=== PATIENT | female | born 1960 | race African-American/Black ===

== ENCOUNTER 2020-01-03 11:49 | Inpatient (IN) | payer OTHER ==
[2020-01-03] MEDS ORDERED: chlordiazePOXIDE HCL 25 MG CAPSULE PO PRN (13:14)
[2020-01-03] MEDS ORDERED: ACETAMINOPHEN 325 MG TABLET (FP) PO PRN ×2 (13:14)
[2020-01-03] MEDS ORDERED: METHOCARBAMOL 500 MG TABLET PO PRN (13:14)
[2020-01-03] MEDS ORDERED: BISMUTH SUBSALICYLATE 262 MG/15 ML BTL PO PRN (13:14)
[2020-01-03] MEDS ORDERED: IBUPROFEN 400 MG TABLET (FP) PO PRN (13:14)
[2020-01-03] MEDS ORDERED: MAGNESIUM CITRATE 300 ML BOTTLE PO PRN (13:14)
[2020-01-03] MEDS ORDERED: ONDANSETRON *ODT* 4 MG TABLET SL ONE (13:14)
[2020-01-03] MEDS ORDERED: MAGNESIUM HYDROX 2400MG/30ML ORAL SUSPENSION 30 ML CUP PO PRN (13:14)
[2020-01-03 14:24] VITALS: BMI 18.6
[2020-01-03] MEDS: hydrOXYzine PAMOATE 25 MG CAPSULE (FP) PO SCH ×3 (15:26→22:30)
[2020-01-03] MEDS: PRENATAL VITAMINS W/ FOLIC ACID TABLET (FP) PO SCH (15:26)
[2020-01-03] MEDS: amLODIPine BESYLATE 10 MG TABLET (FP) PO SCH (15:26)
[2020-01-03 17:14] LABS: MCH 29.9 pg (25.7-33.7); MCHC 32.5 g/dl (32.0-36.0); MEAN CELL VOLUME 91.9 fl (80-96); MEAN PLT VOLUME 11.4 fl (7.5-11.1); PLATELET COUNT 188 K/MM3 (134-434); RBC 4.35 M/mm3 (3.60-5.2); RDW 14.1 % (11.6-15.6); WHITE BLOOD COUNT 8.3 K/mm3 (4.0-10.0)
[2020-01-03 17:28] LABS: ALBUMIN 4.6 g/dl (3.4-5.0); BILIRUBIN,TOTAL 0.6 mg/dL (0.2-1); BLOOD UREA NITROGEN 16.3 mg/dL (7-18); CALCIUM 9.4 mg/dL (8.5-10.1); CREATININE 0.9 mg/dL (0.55-1.3); POTASSIUM 4.2 mmol/L (3.5-5.1); TOT PROT 8.6 g/dl (6.4-8.2)
[2020-01-03] MEDS: chlordiazePOXIDE HCL 25 MG CAPSULE PO SCH ×2 (17:38→22:40)
[2020-01-03 18:18] LABS: HIV INTERPRETATION NEGATIVE (NEGATIVE)
[2020-01-03] MEDS: MENTHOL/PHENOL 1 EACH UD MM PRN (20:31)
[2020-01-03] MEDS: THIAMINE HCL 100 MG TABLET (FP) PO SCH (22:30)
[2020-01-03] MEDS: ATORVASTATIN CA 10 MG TABLET (FP) PO SCH (22:30)
[2020-01-03] MEDS: traZODone HCL 50 MG TABLET (FP) PO SCH (22:30)
[2020-01-03] MEDS: MELATONIN 5 MG TABLETS PO SCH (22:30)
[2020-01-04] MEDS: hydrOXYzine PAMOATE 25 MG CAPSULE (FP) PO SCH ×5 (07:09→22:07)
[2020-01-04] MEDS: chlordiazePOXIDE HCL 25 MG CAPSULE PO SCH ×4 (07:09→22:07)
[2020-01-04] MEDS: amLODIPine BESYLATE 10 MG TABLET (FP) PO SCH (10:40)
[2020-01-04] MEDS: PRENATAL VITAMINS W/ FOLIC ACID TABLET (FP) PO SCH (10:40)
[2020-01-04] MEDS: MENTHOL/PHENOL 1 EACH UD MM PRN (11:41)
[2020-01-04] MEDS: ATORVASTATIN CA 10 MG TABLET (FP) PO SCH (22:06)
[2020-01-04] MEDS: MELATONIN 5 MG TABLETS PO SCH (22:07)
[2020-01-04] MEDS: THIAMINE HCL 100 MG TABLET (FP) PO SCH (22:07)
[2020-01-04] MEDS: traZODone HCL 50 MG TABLET (FP) PO SCH (22:07)
[2020-01-05] MEDS: chlordiazePOXIDE HCL 25 MG CAPSULE PO SCH ×4 (06:19→22:25)
[2020-01-05] MEDS: hydrOXYzine PAMOATE 25 MG CAPSULE (FP) PO SCH ×2 (06:19→10:25)
[2020-01-05] MEDS: MENTHOL/PHENOL 1 EACH UD MM PRN ×2 (06:21→10:28)
[2020-01-05] MEDS: PRENATAL VITAMINS W/ FOLIC ACID TABLET (FP) PO SCH (10:25)
[2020-01-05] MEDS: amLODIPine BESYLATE 10 MG TABLET (FP) PO SCH (10:26)
[2020-01-05 10:28] LABS: EPI CELLS 23 /uL (0-25.1); HYALINE CASTS 1 /uL (0-3.1); URINE APPEARANCE CLEAR; URINE BACTERIA 153 /uL (0-1359); URINE BILIRUBIN NEGATIVE (NEGATIVE); URINE COLOR YELLOW; URINE GLUCOSE (UA) NEGATIVE (NEGATIVE); URINE KETONE NEGATIVE (NEGATIVE); URINE LEUK ESTERASE 2+ (NEGATIVE); URINE NITRITE NEGATIVE (NEGATIVE); URINE PROTEIN NEGATIVE (NEGATIVE); URINE RBC 2 /uL (0-23.9); URINE UROBILINOGEN 0.2 mg/dL (0.2-1.0); URINE WBC 43 /uL (0-25.8)
[2020-01-05] MEDS: SULFAMETHOXAZOLE/TRIMETHOPRIM 800MG/160MG D.S. TABLET PO SCH ×2 (14:29→22:25)
[2020-01-05] MEDS ORDERED: hydrOXYzine PAMOATE 50 MG CAPSULE (FP) PO PRN (17:00)
[2020-01-05] MEDS: MAG HYDROX/AL HYDROX/SIMETH 30 ML UNIT-DOSE CUP PO PRN (17:41)
[2020-01-05] MEDS: MELATONIN 5 MG TABLETS PO SCH (22:24)
[2020-01-05] MEDS: THIAMINE HCL 100 MG TABLET (FP) PO SCH (22:24)
[2020-01-05] MEDS: traZODone HCL 50 MG TABLET (FP) PO SCH (22:25)
[2020-01-05] MEDS: ATORVASTATIN CA 10 MG TABLET (FP) PO SCH (22:25)
[2020-01-06] MEDS ORDERED: chlordiazePOXIDE HCL 10 MG CAPSULE PO PRN
[2020-01-06] MEDS: chlordiazePOXIDE HCL 10 MG CAPSULE PO SCH ×4 (05:53→22:15)
[2020-01-06] MEDS: SULFAMETHOXAZOLE/TRIMETHOPRIM 800MG/160MG D.S. TABLET PO SCH ×2 (10:16→22:15)
[2020-01-06] MEDS: PRENATAL VITAMINS W/ FOLIC ACID TABLET (FP) PO SCH (10:16)
[2020-01-06] MEDS: amLODIPine BESYLATE 10 MG TABLET (FP) PO SCH (10:17)
[2020-01-06] MEDS: MAG HYDROX/AL HYDROX/SIMETH 30 ML UNIT-DOSE CUP PO PRN (13:04)
[2020-01-06] MEDS: CHLORHEXIDINE GLUCONATE 0.12% 15ML CUP MM SCH ×4 (13:39→22:16)
[2020-01-06] MEDS: ATORVASTATIN CA 10 MG TABLET (FP) PO SCH (22:15)
[2020-01-06] MEDS: MELATONIN 5 MG TABLETS PO SCH (22:15)
[2020-01-06] MEDS: THIAMINE HCL 100 MG TABLET (FP) PO SCH (22:15)
[2020-01-06] MEDS: traZODone HCL 50 MG TABLET (FP) PO SCH (22:15)
[2020-01-07] MEDS ORDERED: chlordiazePOXIDE HCL 10 MG CAPSULE PO SCH (05:00)
[2020-01-07] MEDS: MENTHOL/PHENOL 1 EACH UD MM PRN (06:16)
[2020-01-07] MEDS: MAG HYDROX/AL HYDROX/SIMETH 30 ML UNIT-DOSE CUP PO PRN ×2 (06:16→11:30)
[2020-01-07] MEDS: amLODIPine BESYLATE 10 MG TABLET (FP) PO SCH (10:27)
[2020-01-07] MEDS: PRENATAL VITAMINS W/ FOLIC ACID TABLET (FP) PO SCH (10:27)
[2020-01-07] MEDS: SULFAMETHOXAZOLE/TRIMETHOPRIM 800MG/160MG D.S. TABLET PO SCH (10:27)
[2020-01-07] MEDS: CHLORHEXIDINE GLUCONATE 0.12% 15ML CUP MM SCH (10:28)
[2020-01-07 12:59] VITALS: BP 104/73; PULSE 92; TEMP 97.1
[2020-01-08] MEDS ORDERED: chlordiazePOXIDE HCL 10 MG CAPSULE PO ONE (05:00)
== END 2020-01-07 13:00 | disposition other institution (70) | DRG 774 ==
LOC: YASAS 11:49 → Y5N DETOX 13:58 → Y6N 15:19 → Y5N DETOX 15:20 → Y3N 01-04 13:25
PROVIDERS: ADMIT Allergy & Immunology; ATTEND Allergy & Immunology
PROC: HZ2ZZZZ Detoxification Services for Substance Abuse Treatment (ICD-10-PCS; principal; 2020-01-03)
DX: F10.230 Alcohol dependence with withdrawal, uncomplicated (principal); F14.20 Cocaine dependence, uncomplicated; F16.20 Hallucinogen dependence, uncomplicated; F19.282 Other psychoactive substance dependence with psychoactive substance-induced sleep disorder; F32.9 Major depressive disorder, single episode, unspecified; I10 Essential (primary) hypertension; J45.20 Mild intermittent asthma, uncomplicated; E78.5 Hyperlipidemia, unspecified; N39.0 Urinary tract infection, site not specified; R07.0 Pain in throat; Z87.891 Personal history of nicotine dependence; Z86.19 Personal history of other infectious and parasitic diseases; Z62.810 Personal history of physical and sexual abuse in childhood; Z91.410 Personal history of adult physical and sexual abuse
CPT/HCPCS: 36415; 71046-TC-FY; 80053; 81003; 85027; 86593; 86780; 87389; 93005; 93010; Q0162; U0003

== ENCOUNTER 2020-01-07 13:09 | Inpatient (IN) | payer OTHER ==
--- NOTE | 2020-01-07 15:00 | HP ---
[facility] Rehab Assess/Revision - Admission History Admitted to Rehab from: [facility] Date of Admission to Rehab: 01/07/2020 - Vital signs Vital Signs: Vital Signs Period Temp Pulse Resp BP Sys/Nesbtit Pulse Ox Last 24 Hr 98.6 F 97 18 114/103 - Findings Detox History & Physical reviewed: Yes Concur with findings: Yes Inpatient Rehab Admission - Rehab Decision to Admit Inpatient rehab admission?: Yes - Initial Determination Are CD services needed?: Yes Free of communicable disease: Yes Not in need of hospitalization: No - Rehab Admission Criteria Previous failed treatment: Yes Poor recovery environment: Yes Comorbidities: Yes Lacks judgement: No Patient is meeting Inpatient Rehab admission criteria:: Yes
[2020-01-07] MEDS ORDERED: LOPERAMIDE HCL 2 MG CAPSULE PO PRN (15:01)
[2020-01-07] MEDS ORDERED: MAGNESIUM HYDROX 2400MG/30ML ORAL SUSPENSION 30 ML CUP PO PRN (15:01)
[2020-01-07] MEDS ORDERED: MAGNESIUM CITRATE 300 ML BOTTLE PO PRN (15:01)
[2020-01-07] MEDS ORDERED: P-EPHED 60MG/TRIPROLIDI 2.5MG TABLET PO PRN (15:01)
[2020-01-07] MEDS ORDERED: NICOTINE POLACRILEX 2 MG GUM BUC PRN (15:01)
[2020-01-07] MEDS ORDERED: MENTHOL/PHENOL 1 EACH UD MM PRN (15:01)
[2020-01-07] MEDS ORDERED: ACETAMINOPHEN 325 MG TABLET (FP) PO PRN (15:01)
[2020-01-07] MEDS ORDERED: guaiFENesin 200 MG/10 ML 10 ML UNIT-DOSE CUPS PO PRN (15:01)
[2020-01-07] MEDS: MAG HYDROX/AL HYDROX/SIMETH 30 ML UNIT-DOSE CUP PO PRN (16:50)
[2020-01-07] MEDS: THIAMINE HCL 100 MG TABLET (FP) PO SCH (21:41)
[2020-01-07] MEDS: MELATONIN 5 MG TABLETS PO SCH (21:41)
[2020-01-07] MEDS: ATORVASTATIN CA 10 MG TABLET (FP) PO SCH (21:43)
[2020-01-07] MEDS: SULFAMETHOXAZOLE/TRIMETHOPRIM 800MG/160MG D.S. TABLET PO SCH (21:43)
[2020-01-07] MEDS ORDERED: PT OWN MED DRAWER 7, Y5N ONE (21:43)
[2020-01-07] MEDS: CHLORHEXIDINE GLUCONATE 0.12% 15ML CUP MM SCH (22:38)
[2020-01-08] MEDS: CHLORHEXIDINE GLUCONATE 0.12% 15ML CUP MM SCH ×2 (09:59→21:49)
[2020-01-08] MEDS: amLODIPine BESYLATE 10 MG TABLET (FP) PO SCH (09:59)
[2020-01-08] MEDS: SULFAMETHOXAZOLE/TRIMETHOPRIM 800MG/160MG D.S. TABLET PO SCH ×2 (09:59→21:49)
[2020-01-08] MEDS: PRENATAL VITAMINS W/ FOLIC ACID TABLET (FP) PO SCH (09:59)
[2020-01-08] MEDS: NICOTINE 7 MG/24 HOURS TOPICAL PATCH TD SCH (09:59)
[2020-01-08] MEDS: MAG HYDROX/AL HYDROX/SIMETH 30 ML UNIT-DOSE CUP PO PRN (18:41)
[2020-01-08] MEDS: THIAMINE HCL 100 MG TABLET (FP) PO SCH (21:49)
[2020-01-08] MEDS: ATORVASTATIN CA 10 MG TABLET (FP) PO SCH (21:49)
[2020-01-08] MEDS: MELATONIN 5 MG TABLETS PO SCH (21:49)
[2020-01-08] MEDS ORDERED: METHYL SALICYLATE/MENTHOL OINT 30 GM TUBE TP SCH (22:00)
[2020-01-08] MEDS: IBUPROFEN 400 MG TABLET (FP) PO PRN (22:40)
[2020-01-09] MEDS: PRENATAL VITAMINS W/ FOLIC ACID TABLET (FP) PO SCH (09:48)
[2020-01-09] MEDS: amLODIPine BESYLATE 10 MG TABLET (FP) PO SCH (09:49)
[2020-01-09] MEDS: SULFAMETHOXAZOLE/TRIMETHOPRIM 800MG/160MG D.S. TABLET PO SCH ×2 (09:49→21:27)
[2020-01-09] MEDS: NICOTINE 7 MG/24 HOURS TOPICAL PATCH TD SCH (09:49)
[2020-01-09] MEDS: CHLORHEXIDINE GLUCONATE 0.12% 15ML CUP MM SCH ×2 (09:50→21:27)
[2020-01-09] MEDS: ATORVASTATIN CA 10 MG TABLET (FP) PO SCH (21:27)
[2020-01-09] MEDS: THIAMINE HCL 100 MG TABLET (FP) PO SCH (21:27)
[2020-01-09] MEDS: MELATONIN 5 MG TABLETS PO SCH (21:27)
[2020-01-10] MEDS: CHLORHEXIDINE GLUCONATE 0.12% 15ML CUP MM SCH (10:50)
[2020-01-10] MEDS: PRENATAL VITAMINS W/ FOLIC ACID TABLET (FP) PO SCH (10:50)
[2020-01-10] MEDS: amLODIPine BESYLATE 10 MG TABLET (FP) PO SCH (10:50)
[2020-01-10] MEDS: SULFAMETHOXAZOLE/TRIMETHOPRIM 800MG/160MG D.S. TABLET PO SCH (12:04)
[2020-01-10] MEDS: NICOTINE 7 MG/24 HOURS TOPICAL PATCH TD SCH (12:07)
[2020-01-10] MEDS: IBUPROFEN 400 MG TABLET (FP) PO PRN (14:41)
[2020-01-10] MEDS: ALBUTEROL SO4 HFA INHALER IH PRN ×2 (17:51→22:07)
--- NOTE | 2020-01-10 18:23 | PN ---
[facility] Progress Note Note: Called to see patient who was c/o SOB. Patient given albuterol MDI . Patient states may have been anxiety. c/o insomnia. States has taken Trazodone in the past. Vital Signs - 24 hr 01/10/20 01/10/20 01/10/20 07:17 08:38 16:50 Temperature 98.2 F 97.5 F L Pulse Rate 93 H 98 H Respiratory 18 18 Rate Blood Pressure 106/76 110/77 O2 Sat by Pulse 98 95 Oximetry (%) Assess: Post albuterol Pulse Ox = 98% Lungs CTA HR: 96 Plan: Albuterol MDI, prn Flovent BID Once dose Trazodone Psych consult
[2020-01-10] MEDS ORDERED: PT OWN MED DRAWER 7, Y5N ONE (20:40)
[2020-01-10] MEDS ORDERED: traZODone HCL 50 MG TABLET (FP) PO ONE (21:00)
[2020-01-10] MEDS: ATORVASTATIN CA 10 MG TABLET (FP) PO SCH (22:08)
[2020-01-10] MEDS: MOMETASONE FUROATE 220 MCG/IH INHALER IH SCH (22:08)
[2020-01-10] MEDS: MELATONIN 5 MG TABLETS PO SCH (22:09)
[2020-01-10] MEDS: THIAMINE HCL 100 MG TABLET (FP) PO SCH (22:09)
[2020-01-11] MEDS: CHLORHEXIDINE GLUCONATE 0.12% 15ML CUP MM SCH ×3 (00:28→21:18)
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
[2020-01-11] MEDS: PRENATAL VITAMINS W/ FOLIC ACID TABLET (FP) PO SCH (10:35)
[2020-01-11] MEDS: IBUPROFEN 400 MG TABLET (FP) PO PRN (10:36)
[2020-01-11] MEDS: NICOTINE 7 MG/24 HOURS TOPICAL PATCH TD SCH (10:36)
[2020-01-11] MEDS: amLODIPine BESYLATE 10 MG TABLET (FP) PO SCH (10:36)
[2020-01-11] MEDS ORDERED: PT OWN MED DRAWER 7, Y5N ONE (10:38)
[2020-01-11] MEDS: ATORVASTATIN CA 10 MG TABLET (FP) PO SCH (21:18)
[2020-01-11] MEDS: MELATONIN 5 MG TABLETS PO SCH (21:18)
[2020-01-11] MEDS: THIAMINE HCL 100 MG TABLET (FP) PO SCH (21:18)
[2020-01-11] MEDS: traZODone HCL 100 MG TABLET (FP) PO SCH (21:19)
[2020-01-11] MEDS: MOMETASONE FUROATE 220 MCG/IH INHALER IH SCH (21:20)
[2020-01-12] MEDS: amLODIPine BESYLATE 10 MG TABLET (FP) PO SCH (10:34)
[2020-01-12] MEDS: PRENATAL VITAMINS W/ FOLIC ACID TABLET (FP) PO SCH (10:34)
[2020-01-12] MEDS: NICOTINE 7 MG/24 HOURS TOPICAL PATCH TD SCH (10:34)
[2020-01-12] MEDS: CHLORHEXIDINE GLUCONATE 0.12% 15ML CUP MM SCH ×2 (10:35→21:52)
[2020-01-12] MEDS ORDERED: PT OWN MED DRAWER 7, Y5N ONE (19:12)
[2020-01-12] MEDS: MELATONIN 5 MG TABLETS PO SCH (21:51)
[2020-01-12] MEDS: traZODone HCL 100 MG TABLET (FP) PO SCH (21:51)
[2020-01-12] MEDS: ATORVASTATIN CA 10 MG TABLET (FP) PO SCH (21:51)
[2020-01-12] MEDS: THIAMINE HCL 100 MG TABLET (FP) PO SCH (21:51)
[2020-01-12] MEDS: MOMETASONE FUROATE 220 MCG/IH INHALER IH SCH (21:52)
[2020-01-13] MEDS ORDERED: PT OWN MED DRAWER 7, Y5N ONE (09:02)
[2020-01-13] MEDS: PRENATAL VITAMINS W/ FOLIC ACID TABLET (FP) PO SCH (10:40)
[2020-01-13] MEDS: amLODIPine BESYLATE 10 MG TABLET (FP) PO SCH (10:40)
[2020-01-13] MEDS: NICOTINE 7 MG/24 HOURS TOPICAL PATCH TD SCH (10:40)
[2020-01-13] MEDS: CHLORHEXIDINE GLUCONATE 118 ML MOUTHWASH MM SCH ×2 (10:41→21:23)
[2020-01-13] MEDS: ALBUTEROL SO4 HFA INHALER IH PRN (10:41)
[2020-01-13] MEDS: MELATONIN 5 MG TABLETS PO SCH (21:20)
[2020-01-13] MEDS: THIAMINE HCL 100 MG TABLET (FP) PO SCH (21:20)
[2020-01-13] MEDS: ATORVASTATIN CA 10 MG TABLET (FP) PO SCH (21:21)
[2020-01-13] MEDS: traZODone HCL 100 MG TABLET (FP) PO SCH (21:21)
[2020-01-13] MEDS: MOMETASONE FUROATE 220 MCG/IH INHALER IH SCH (21:23)
[2020-01-14] MEDS: NICOTINE 7 MG/24 HOURS TOPICAL PATCH TD SCH (10:44)
[2020-01-14] MEDS: PRENATAL VITAMINS W/ FOLIC ACID TABLET (FP) PO SCH (10:44)
[2020-01-14] MEDS: amLODIPine BESYLATE 10 MG TABLET (FP) PO SCH (10:44)
[2020-01-14] MEDS ORDERED: PT OWN MED DRAWER 7, Y5N ONE (10:48)
[2020-01-14] MEDS: CHLORHEXIDINE GLUCONATE 118 ML MOUTHWASH MM SCH ×2 (12:25→21:29)
[2020-01-14] MEDS: MELATONIN 5 MG TABLETS PO SCH (21:28)
[2020-01-14] MEDS: THIAMINE HCL 100 MG TABLET (FP) PO SCH (21:28)
[2020-01-14] MEDS: traZODone HCL 100 MG TABLET (FP) PO SCH (21:28)
[2020-01-14] MEDS: ATORVASTATIN CA 10 MG TABLET (FP) PO SCH (21:28)
[2020-01-14] MEDS: MOMETASONE FUROATE 220 MCG/IH INHALER IH SCH (21:29)
[2020-01-15] MEDS ORDERED: PT OWN MED DRAWER 7, Y5N ONE (08:52)
[2020-01-15] MEDS: CHLORHEXIDINE GLUCONATE 118 ML MOUTHWASH MM SCH ×2 (10:46→22:00)
[2020-01-15] MEDS: amLODIPine BESYLATE 10 MG TABLET (FP) PO SCH (10:46)
[2020-01-15] MEDS: PRENATAL VITAMINS W/ FOLIC ACID TABLET (FP) PO SCH (10:46)
[2020-01-15] MEDS: NICOTINE 7 MG/24 HOURS TOPICAL PATCH TD SCH (10:46)
[2020-01-15] MEDS: MELATONIN 5 MG TABLETS PO SCH (22:00)
[2020-01-15] MEDS: THIAMINE HCL 100 MG TABLET (FP) PO SCH (22:00)
[2020-01-15] MEDS: traZODone HCL 100 MG TABLET (FP) PO SCH (22:00)
[2020-01-15] MEDS: ATORVASTATIN CA 10 MG TABLET (FP) PO SCH (22:00)
[2020-01-15] MEDS: MOMETASONE FUROATE 220 MCG/IH INHALER IH SCH (22:00)
[2020-01-16] MEDS: NICOTINE 7 MG/24 HOURS TOPICAL PATCH TD SCH (10:21)
[2020-01-16] MEDS: CHLORHEXIDINE GLUCONATE 118 ML MOUTHWASH MM SCH ×2 (10:21→21:46)
[2020-01-16] MEDS: PRENATAL VITAMINS W/ FOLIC ACID TABLET (FP) PO SCH (10:21)
[2020-01-16] MEDS: amLODIPine BESYLATE 10 MG TABLET (FP) PO SCH (10:21)
[2020-01-16] MEDS: IBUPROFEN 400 MG TABLET (FP) PO PRN (18:22)
[2020-01-16] MEDS ORDERED: PT OWN MED DRAWER 7, Y5N ONE (21:02)
[2020-01-16] MEDS: MOMETASONE FUROATE 220 MCG/IH INHALER IH SCH (21:44)
[2020-01-16] MEDS: THIAMINE HCL 100 MG TABLET (FP) PO SCH (21:45)
[2020-01-16] MEDS: traZODone HCL 100 MG TABLET (FP) PO SCH (21:46)
[2020-01-16] MEDS: ATORVASTATIN CA 10 MG TABLET (FP) PO SCH (21:46)
[2020-01-16] MEDS: ALBUTEROL SO4 HFA INHALER IH PRN (21:48)
[2020-01-16] MEDS: MELATONIN 5 MG TABLETS PO SCH (23:07)
[2020-01-17] MEDS: IBUPROFEN 400 MG TABLET (FP) PO PRN (09:09)
[2020-01-17] MEDS: amLODIPine BESYLATE 10 MG TABLET (FP) PO SCH (09:09)
[2020-01-17] MEDS: PRENATAL VITAMINS W/ FOLIC ACID TABLET (FP) PO SCH (09:09)
[2020-01-17] MEDS: CHLORHEXIDINE GLUCONATE 118 ML MOUTHWASH MM SCH ×2 (09:09→21:32)
[2020-01-17] MEDS: NICOTINE 7 MG/24 HOURS TOPICAL PATCH TD SCH (09:10)
[2020-01-17] MEDS: ALBUTEROL SO4 HFA INHALER IH PRN (09:11)
[2020-01-17] MEDS ORDERED: HYDROCORTISONE 1% TOPICAL CREAM 30 GM TUBE TP PRN (11:20)
[2020-01-17] MEDS ORDERED: COLLOIDAL OATMEAL 1 BAR EACH TP PRN (11:20)
--- NOTE | 2020-01-17 11:22 | PN ---
[facility] Progress Note Note: PATIENT C/O DRY SKIN AND ITCHING. Vital Signs Temperature 97.6 F 01/17/20 08:43 Pulse Rate 84 01/17/20 08:43 Respiratory Rate 18 01/17/20 08:43 Blood Pressure 118/79 01/17/20 08:43 O2 Sat by Pulse Oximetry (%) 98 01/17/20 06:45 PE ALERT AND ORIENTED X 3 SKIN WARM, INTACT, +DRYNESS EXT FULL ROM, AMB AD CLAIRE A/P: DRY SKIN AVEENO SOAP HYDROCORTISONE 1% CR BID PRN MONITOR CLINICALLY
--- NOTE | 2020-01-17 18:08 | DS ---
[facility] Rehab Discharge Summary - [facility] Rehab Discharge Summary Admission Date: 01/07/20 Discharge Date: 01/17/20 - Discharge Physical Exam Vital Signs: Vital Signs Temperature 97.6 F 01/17/20 08:43 Pulse Rate 84 01/17/20 08:43 Respiratory Rate 18 01/17/20 08:43 Blood Pressure 118/79 01/17/20 08:43 O2 Sat by Pulse Oximetry (%) 96 01/17/20 15:31 - Medication Discharge Medications: Ambulatory Orders Amlodipine Besylate [Norvasc -] 10 mg PO DAILY 01/03/20 Calcium Carbonate [Oyster Shell Calcium] 500 mg PO BID 01/03/20 Fluticasone Propionate [Flovent Hfa] 44 mcg IH BID 01/03/20 Multivit-Minerals/Folic Acid [One Daily Womens 50 Plus Tab] 0.4 mg PO DAILY 01/03/20 Simvastatin [Zocor] 10 mg PO HS 01/03/20 - Discharge Instructions Diet, activity, other medical instructions: Diet: Activity: Other medical instructions:
--- NOTE | 2020-01-17 18:09 | PN ---
[facility] Progress Note Note: States does not feel comfortable here. 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
[2020-01-17] MEDS: traZODone HCL 100 MG TABLET (FP) PO SCH (21:31)
[2020-01-17] MEDS: THIAMINE HCL 100 MG TABLET (FP) PO SCH (21:31)
[2020-01-17] MEDS: MELATONIN 5 MG TABLETS PO SCH (21:31)
[2020-01-17] MEDS: ATORVASTATIN CA 10 MG TABLET (FP) PO SCH (21:31)
[2020-01-17] MEDS: MOMETASONE FUROATE 220 MCG/IH INHALER IH SCH (21:32)
[2020-01-18] MEDS: amLODIPine BESYLATE 10 MG TABLET (FP) PO SCH (10:21)
[2020-01-18] MEDS: PRENATAL VITAMINS W/ FOLIC ACID TABLET (FP) PO SCH (10:21)
[2020-01-18] MEDS: NICOTINE 7 MG/24 HOURS TOPICAL PATCH TD SCH (10:21)
[2020-01-18] MEDS: ALBUTEROL SO4 HFA INHALER IH PRN (10:21)
[2020-01-18] MEDS: CHLORHEXIDINE GLUCONATE 118 ML MOUTHWASH MM SCH ×2 (10:23→21:15)
[2020-01-18] MEDS: ATORVASTATIN CA 10 MG TABLET (FP) PO SCH (21:15)
[2020-01-18] MEDS: THIAMINE HCL 100 MG TABLET (FP) PO SCH (21:15)
[2020-01-18] MEDS: traZODone HCL 100 MG TABLET (FP) PO SCH (21:15)
[2020-01-18] MEDS: MELATONIN 5 MG TABLETS PO SCH (21:16)
[2020-01-18] MEDS: MOMETASONE FUROATE 220 MCG/IH INHALER IH SCH (21:16)
[2020-01-19] MEDS: amLODIPine BESYLATE 10 MG TABLET (FP) PO SCH (10:11)
[2020-01-19] MEDS: PRENATAL VITAMINS W/ FOLIC ACID TABLET (FP) PO SCH (10:11)
[2020-01-19] MEDS: NICOTINE 7 MG/24 HOURS TOPICAL PATCH TD SCH (10:12)
[2020-01-19] MEDS: CHLORHEXIDINE GLUCONATE 118 ML MOUTHWASH MM SCH ×2 (10:12→21:16)
[2020-01-19] MEDS: IBUPROFEN 400 MG TABLET (FP) PO PRN (10:12)
[2020-01-19] MEDS: ALBUTEROL SO4 HFA INHALER IH PRN (10:13)
[2020-01-19] MEDS ORDERED: PT OWN MED DRAWER 7, Y5N ONE (18:53)
[2020-01-19] MEDS: MELATONIN 5 MG TABLETS PO SCH (21:16)
[2020-01-19] MEDS: THIAMINE HCL 100 MG TABLET (FP) PO SCH (21:16)
[2020-01-19] MEDS: MOMETASONE FUROATE 220 MCG/IH INHALER IH SCH (21:16)
[2020-01-19] MEDS: traZODone HCL 100 MG TABLET (FP) PO SCH (21:16)
[2020-01-19] MEDS: ATORVASTATIN CA 10 MG TABLET (FP) PO SCH (21:16)
[2020-01-20] MEDS: CHLORHEXIDINE GLUCONATE 118 ML MOUTHWASH MM SCH ×2 (10:16→21:50)
[2020-01-20] MEDS: PRENATAL VITAMINS W/ FOLIC ACID TABLET (FP) PO SCH (10:29)
[2020-01-20] MEDS: amLODIPine BESYLATE 10 MG TABLET (FP) PO SCH (10:29)
[2020-01-20] MEDS: ALBUTEROL SO4 HFA INHALER IH PRN (10:29)
[2020-01-20] MEDS: NICOTINE 7 MG/24 HOURS TOPICAL PATCH TD SCH (10:29)
--- NOTE | 2020-01-20 11:21 | PN ---
[facility] Progress Note Note: patient to be discharged tomorrow. HPI: Ms. Neal is a 59 yo woman who presents to [facility] stating "I'm so tired and desperate, I'm tired of getting high", admitted for detox, which she completed, then transferred to rehab, now completed. Reported hx of alcohol, crack and PCP use. She was last here in November and states she was not admitted as there was no available bed. Hospital course during rehab: patient attended groups, had 1:1 with her counselor and was seen by the psychiatric service. She was adherent to her medication regimen and treatment plan She had no acute or urgent medical problems while in rehab. PMHx; PMH: HTN, asthma, HLD, asthma/no tx PSH: 2 left thumb tendons, left ankle fracture: screws and rods, myomectomy for fibroids Psych: depression, anxiety, no follow up in 2 years SOC: lives in her own apartment in [facility] Physical General Appearance: no apparent distress HEENTM: Normocephalic, Respiratory: respirations unlabored, No Accessory Muscle Use Neck: Supple, Cardiology: S1, S2 Abdominal: +Bowel Sounds Musculoskeletal: Full ROM, Gait Steady Neurological: Cn 2-12 intact Vital Signs Period Temp Pulse Resp BP Sys/Nesbitt Pulse Ox Last 24 Hr 98.2 F-98.4 F 87-90 18-19 106-110/70-88 95-97 Assessment: Polysubstance use Discharge plan: Patient will receive aftercare at [facility] and continue psychiatric treatment at [facility] Medications sent to her pharmacy.
--- NOTE | 2020-01-20 14:40 | PN ---
[facility] Progress Note Note: Patient is scheduled for discharge tomorrow. Script for 30 days supply of [id number] mg/hs will be electronically transmitted to [facility], [address], [place] [address]
[2020-01-20] MEDS: MOMETASONE FUROATE 220 MCG/IH INHALER IH SCH (21:50)
[2020-01-20] MEDS: ATORVASTATIN CA 10 MG TABLET (FP) PO SCH (21:51)
[2020-01-20] MEDS: THIAMINE HCL 100 MG TABLET (FP) PO SCH (21:52)
[2020-01-20] MEDS: traZODone HCL 100 MG TABLET (FP) PO SCH (21:52)
[2020-01-20] MEDS: MELATONIN 5 MG TABLETS PO SCH (21:53)
[2020-01-21] MEDS ORDERED: MASKS NR ONE (09:07)
[2020-01-21 09:15] VITALS: BP 125/81; PULSE 83; TEMP 98.2
[2020-01-21] MEDS: PRENATAL VITAMINS W/ FOLIC ACID TABLET (FP) PO SCH (09:28)
[2020-01-21] MEDS: amLODIPine BESYLATE 10 MG TABLET (FP) PO SCH (09:28)
[2020-01-21] MEDS: NICOTINE 7 MG/24 HOURS TOPICAL PATCH TD SCH (09:28)
[2020-01-21] MEDS: CHLORHEXIDINE GLUCONATE 118 ML MOUTHWASH MM SCH (09:29)
--- NOTE | 2020-01-21 09:44 | DS ---
[facility] Rehab Discharge Summary - [facility] Rehab Discharge Summary Admission Date: 01/07/20 Discharge Date: 01/21/20 - History Present History: Alcohol dependence, Cocaine dependence - Discharge Physical Exam Vital Signs: Vital Signs Temperature 98.2 F 01/21/20 08:36 Pulse Rate 83 01/21/20 08:36 Respiratory Rate 18 01/21/20 08:36 Blood Pressure 125/81 01/21/20 08:36 O2 Sat by Pulse Oximetry (%) 98 01/21/20 06:58 ROS: DENIES CHEST PAIN, SOB, FEVER, COUGH, SWEATS, ALCOHOL/HILTON CRAVINGS AND SHAKES PE: ALERT AND ORIENTED X 3 SKIN WARM AND DRY CAR S1S2 RESP CTA BL EXT FULL ROM, AMB AD CLAIRE NO TREMORS A/P: ALCOHOL DEPENDENCE COCAINE DEPENDENCE HTN ASTHMA PATIENT MEDICALLY STABLE FOR DISCHARGE AFTERCARE AR[facility]ANGED FOR [facility] - Treatment Discharge Condition: Discharge condition good - Medication Discharge Medications: Ambulatory Orders Fluticasone Propionate [Flovent Hfa] 44 mcg IH BID 01/03/20 Amlodipine Besylate [Norvasc -] 10 mg PO DAILY #30 tablet 01/20/20 Calcium Carbonate [Oyster Shell Calcium] 500 mg PO BID #30 tablet 01/20/20 Multivit-Minerals/Folic Acid [One Daily Womens 50 Plus Tab] 0.4 mg PO DAILY #30 tablet 01/20/20 Simvastatin [Zocor -] 10 mg PO HS #30 tablet 01/20/20 traZODone HCL [Desyrel -] 100 mg PO HS #30 tablet 01/20/20 - Medication-Assisted Treatment (MAT) Medication-Assisted Treatment (MAT): No MAT Follow-up Referral: FLORIAN GARCIA, APPT 01/25/2020 11AM. - Discharge Instructions Diet, activity, other medical instructions: Diet: DAMIAN TOLERATED Activity: TOLERATED Other medical instructions: F/U WITH PCP RECOMMENDED - Follow-up Referral Minutes to complete discharge: 35 - AMA Did Patient Leave Against Medical Advice: Yes
== END 2020-01-21 09:41 | disposition home or self-care (01) | DRG 772 ==
LOC: YASAS 13:09 → Y3W 13:11
PROVIDERS: ADMIT Allergy & Immunology; ATTEND Allergy & Immunology
PROC: HZ42ZZZ Group Counseling for Substance Abuse Treatment, Cognitive-Behavioral (ICD-10-PCS; principal; 2020-01-07)
DX: F10.20 Alcohol dependence, uncomplicated (principal); F14.20 Cocaine dependence, uncomplicated; F16.20 Hallucinogen dependence, uncomplicated; F17.210 Nicotine dependence, cigarettes, uncomplicated; F19.282 Other psychoactive substance dependence with psychoactive substance-induced sleep disorder; F41.8 Other specified anxiety disorders; F32.9 Major depressive disorder, single episode, unspecified; I10 Essential (primary) hypertension; E78.5 Hyperlipidemia, unspecified; J45.909 Unspecified asthma, uncomplicated; L85.3 Xerosis cutis; Z62.810 Personal history of physical and sexual abuse in childhood; Z91.410 Personal history of adult physical and sexual abuse; Z86.2 Personal history of diseases of the blood and blood-forming organs and certain disorders involving the immune mechanism; Z56.0 Unemployment, unspecified

== ENCOUNTER 2023-12-23 12:20 | Inpatient (IN) | payer OTHER ==
[2023-12-23 12:49] VITALS: BMI 17.7
[2023-12-23] MEDS ORDERED: guaiFENesin 600 MG TABLET.ER (FP) PO PRN (13:25)
[2023-12-23] MEDS ORDERED: NALOXONE (NARCAN) HCL 4 MG/0.1 ML SPRAY NS PRN (13:25)
[2023-12-23] MEDS ORDERED: ACETAMINOPHEN 325 MG TABLET (FP) PO PRN (13:25)
[2023-12-23] MEDS ORDERED: DICYCLOMINE HCL 10 MG CAPSULE PO PRN (13:25)
[2023-12-23] MEDS ORDERED: BENZONATATE 200 MG CAPSULE PO PRN (13:25)
[2023-12-23] MEDS ORDERED: POLYETHYLENE GLYCOL (HEALTHYLAX) 3350 17 GM PACKET PO PRN (13:25)
[2023-12-23] MEDS ORDERED: BISMUTH SUBSALICYLATE 524 MG/30 ML PO PRN (13:25)
[2023-12-23] MEDS ORDERED: IBUPROFEN 400 MG TABLET (FP) PO PRN (13:25)
[2023-12-23] MEDS ORDERED: MAGNESIUM HYDROX 2400MG/30ML ORAL SUSPENSION 30 ML CUP PO PRN (13:25)
[2023-12-23] MEDS ORDERED: NALOXONE HCL 0.4 MG/ML VIAL IM PRN (13:25)
[2023-12-23] MEDS ORDERED: chlordiazePOXIDE HCL 25 MG CAPSULE PO PRN (13:25)
[2023-12-23] MEDS ORDERED: ONDANSETRON *ODT* 4 MG TABLET SL PRN (13:25)
[2023-12-23] MEDS ORDERED: cloNIDine HCL 0.1 MG TABLET ONE (13:43)
[2023-12-23] MEDS ORDERED: PRENATAL VITAMINS W/ FOLIC ACID TABLET (FP) PO ONE (13:43)
[2023-12-23] MEDS: cloNIDine HCL 0.1 MG TABLET PO ONE (13:45)
[2023-12-23] MEDS: PRENATAL VITAMINS W/ FOLIC ACID TABLET (FP) PO SCH (13:46)
[2023-12-23] MEDS: hydrOXYzine PAMOATE 25 MG CAPSULE (FP) PO PRN (17:23)
[2023-12-23] MEDS: BENZOCAINE/MENTHOL (CHLORASEPTIC ) LOZENGE MM PRN (17:23)
[2023-12-23] MEDS: IBUPROFEN 600 MG TABLET (FP) PO PRN (17:24)
[2023-12-23] MEDS: chlordiazePOXIDE HCL 25 MG CAPSULE PO SCH (17:25)
[2023-12-23] MEDS: ALBUTEROL SO4 HFA INHALER IH PRN (19:44)
[2023-12-23] MEDS: MELATONIN 5 MG TABLETS PO SCH (22:31)
[2023-12-23] MEDS: ATORVASTATIN CA 10 MG TABLET (FP) PO SCH (22:32)
[2023-12-23] MEDS: THIAMINE 100 MG TABLET PO SCH (22:32)
[2023-12-23] MEDS: MOMETASONE FUROATE 220 MCG/IH INHALER IH SCH (22:32)
[2023-12-23] MEDS: CALCIUM (OYSTER SHELL) 500 MG TABLET (FP) PO SCH (23:11)
[2023-12-24] MEDS: amLODIPine BESYLATE 10 MG TABLET (FP) PO SCH (10:30)
[2023-12-24 11:41] LABS: HEMATOCRIT 35.3 % (32.4-45.2); HEMOGLOBIN 11.8 GM/dL (10.7-15.3); MCHC 33.3 g/dl (32.0-36.0); MEAN CELL VOLUME 90.2 fl (80-96); MEAN PLT VOLUME 10.9 fl (7.5-11.1); PLATELET COUNT 157 10^3/uL (134-434); RBC 3.92 M/mm3 (3.60-5.2); RDW 13.3 % (11.6-15.6); WHITE BLOOD COUNT 4.8 K/mm3 (4.0-10.0)
[2023-12-24 11:51] LABS: CHLORIDE 105 mmol/L (98-107); POTASSIUM 3.5 mmol/L (3.5-5.1); SODIUM 143 mmol/L (136-145)
[2023-12-24 12:06] LABS: ALBUMIN 3.7 g/dl (3.4-5.0)
[2023-12-24 12:09] LABS: ANION GAP 8 mmol/L (4-13); BLOOD UREA NITROGEN 14.4 mg/dL (7-18); CALCIUM 9.2 mg/dL (8.5-10.1); CO2 30 mmol/L (21-32)
[2023-12-24 12:10] LABS: GLUCOSE,RANDOM 91 mg/dL (74-106)
[2023-12-24 12:13] LABS: BILIRUBIN,TOTAL 0.5 mg/dL (0.2-1); CREATININE 0.8 mg/dL (0.55-1.3); SGOT/AST 16 U/L (15-37); SGPT/ALT 15 U/L (13-61)
[2023-12-24 12:19] LABS: ALK PHOS 74 U/L (45-117)
[2023-12-24] MEDS: METHOCARBAMOL 500 MG TABLET PO PRN (17:14)
[2023-12-25] MEDS: chlordiazePOXIDE HCL 25 MG CAPSULE PO SCH (05:23)
[2023-12-25] MEDS: LISINOPRIL 5 MG TABLET PO SCH (13:56)
[2023-12-25] MEDS: MAG HYDROX/AL HYDROX/SIMETH 30 ML UNIT-DOSE CUP PO PRN (19:28)
[2023-12-25] MEDS: LOPERAMIDE HCL 2 MG CAPSULE PO PRN (22:16)
[2023-12-26] MEDS ORDERED: chlordiazePOXIDE HCL 10 MG CAPSULE PO PRN
[2023-12-26] MEDS: chlordiazePOXIDE HCL 10 MG CAPSULE PO SCH (05:43)
[2023-12-26] MEDS: AMOXICILLIN 500 MG CAPSULE (FP) PO SCH (13:03)
[2023-12-27] MEDS: chlordiazePOXIDE HCL 10 MG CAPSULE PO SCH (05:53)
[2023-12-28] MEDS: chlordiazePOXIDE HCL 10 MG CAPSULE PO ONE (05:58)
[2023-12-29 10:42] VITALS: BP 122/82; PULSE 100; RESP 20; TEMP 98.7
== END 2023-12-29 12:15 | disposition other institution (70) | DRG 774 ==
LOC: YASAS 12:20 → Y6N 14:18
PROVIDERS: ADMIT Allergy & Immunology; ATTEND Surgery
PROC: HZ2ZZZZ Detoxification Services for Substance Abuse Treatment (ICD-10-PCS; principal; 2023-12-23)
DX: F10.230 Alcohol dependence with withdrawal, uncomplicated (principal); F14.20 Cocaine dependence, uncomplicated; F41.9 Anxiety disorder, unspecified; E78.5 Hyperlipidemia, unspecified; I10 Essential (primary) hypertension; J45.20 Mild intermittent asthma, uncomplicated; J31.2 Chronic pharyngitis; Z20.2 Contact with and (suspected) exposure to infections with a predominantly sexual mode of transmission; Z62.810 Personal history of physical and sexual abuse in childhood; Z91.410 Personal history of adult physical and sexual abuse
CPT/HCPCS: 0241U-QW; 36415; 71046-TC-FY; 80053; 80305; 80307; 82140; 85027; 86593; 86780; 87070; 87811; 93005; 93010

== ENCOUNTER 2023-12-29 12:20 | Inpatient (IN) | payer OTHER ==
[2023-12-29] MEDS ORDERED: MAG HYDROX/AL HYDROX/SIMETH 30 ML UNIT-DOSE CUP PO PRN (13:34)
[2023-12-29] MEDS ORDERED: IBUPROFEN 600 MG TABLET (FP) PO PRN (13:34)
[2023-12-29] MEDS ORDERED: NICOTINE POLACRILEX 2 MG GUM BUC PRN (13:34)
[2023-12-29] MEDS ORDERED: BENZOCAINE/MENTHOL (CHLORASEPTIC ) LOZENGE MM PRN (13:34)
[2023-12-29] MEDS ORDERED: BENZONATATE 200 MG CAPSULE PO PRN (13:34)
[2023-12-29] MEDS ORDERED: IBUPROFEN 400 MG TABLET (FP) PO PRN (13:34)
[2023-12-29] MEDS ORDERED: LOPERAMIDE HCL 2 MG CAPSULE PO PRN (13:34)
[2023-12-29] MEDS ORDERED: guaiFENesin 600 MG TABLET.ER (FP) PO PRN (13:34)
[2023-12-29] MEDS ORDERED: POLYETHYLENE GLYCOL (HEALTHYLAX) 3350 17 GM PACKET PO PRN (13:34)
[2023-12-29] MEDS ORDERED: ACETAMINOPHEN 325 MG TABLET (FP) PO PRN (13:34)
[2023-12-29] MEDS ORDERED: NICOTINE POLACRILEX 2 MG LOZENGE BC PRN (13:34)
[2023-12-29] MEDS ORDERED: MAGNESIUM HYDROX 2400MG/30ML ORAL SUSPENSION 30 ML CUP PO PRN (13:34)
[2023-12-29] MEDS: ALBUTEROL SO4 HFA INHALER IH PRN (18:05)
[2023-12-29] MEDS: MOMETASONE FUROATE 110 MCG/IH INHALER IH SCH (21:30)
[2023-12-29] MEDS: AMOXICILLIN 500 MG CAPSULE (FP) PO SCH (21:31)
[2023-12-29] MEDS: MELATONIN 5 MG TABLETS PO SCH (21:31)
[2023-12-29] MEDS: THIAMINE 100 MG TABLET PO SCH (21:31)
[2023-12-29] MEDS: CALCIUM (OYSTER SHELL) 500 MG TABLET (FP) PO SCH (21:31)
[2023-12-29] MEDS: hydrOXYzine PAMOATE 25 MG CAPSULE (FP) PO PRN (21:32)
[2023-12-29] MEDS: ATORVASTATIN CA 10 MG TABLET (FP) PO SCH (21:32)
[2023-12-30 09:15] VITALS: RESP 18
[2023-12-30] MEDS: PRENATAL VITAMINS W/ FOLIC ACID TABLET (FP) PO SCH (09:47)
[2023-12-30] MEDS: amLODIPine BESYLATE 10 MG TABLET (FP) PO SCH (09:47)
[2023-12-30] MEDS: LISINOPRIL 5 MG TABLET PO SCH (09:47)
[2023-12-30 10:47] VITALS: BP 118/71; PULSE 98; TEMP 98
== END 2023-12-30 12:55 | disposition left against medical advice (07) | DRG 770 ==
LOC: YASAS 12:20 → Y3NR 12:21 → Y5N 12-30 10:27
PROVIDERS: ADMIT Allergy & Immunology; ATTEND Psychiatry & Neurology Pain Medicine
PROC: HZ42ZZZ Group Counseling for Substance Abuse Treatment, Cognitive-Behavioral (ICD-10-PCS; principal; 2023-12-29)
DX: F10.20 Alcohol dependence, uncomplicated (principal); F14.20 Cocaine dependence, uncomplicated; F17.210 Nicotine dependence, cigarettes, uncomplicated; E78.5 Hyperlipidemia, unspecified; I10 Essential (primary) hypertension; J45.20 Mild intermittent asthma, uncomplicated; Z20.2 Contact with and (suspected) exposure to infections with a predominantly sexual mode of transmission
CPT/HCPCS: 87811

== ENCOUNTER 2024-04-15 12:53 | Inpatient (IN) | payer OTHER ==
[2024-04-15 13:38] VITALS: BMI 16.5
[2024-04-15] MEDS ORDERED: MAGNESIUM HYDROX 2400MG/30ML ORAL SUSPENSION 30 ML CUP PO PRN (14:28)
[2024-04-15] MEDS ORDERED: BENZONATATE 200 MG CAPSULE PO PRN (14:28)
[2024-04-15] MEDS ORDERED: ONDANSETRON *ODT* 4 MG TABLET SL PRN (14:28)
[2024-04-15] MEDS ORDERED: NALOXONE (NARCAN) HCL 4 MG/0.1 ML SPRAY NS PRN (14:28)
[2024-04-15] MEDS ORDERED: DICYCLOMINE HCL 10 MG CAPSULE PO PRN (14:28)
[2024-04-15] MEDS ORDERED: LOPERAMIDE HCL 2 MG CAPSULE PO PRN (14:28)
[2024-04-15] MEDS ORDERED: MAG HYDROX/AL HYDROX/SIMETH 30 ML UNIT-DOSE CUP PO PRN (14:28)
[2024-04-15] MEDS ORDERED: IBUPROFEN 400 MG TABLET (FP) PO PRN (14:28)
[2024-04-15] MEDS ORDERED: POLYETHYLENE GLYCOL (HEALTHYLAX) 3350 17 GM PACKET PO PRN (14:28)
[2024-04-15] MEDS ORDERED: ACETAMINOPHEN 325 MG TABLET (FP) PO PRN (14:28)
[2024-04-15] MEDS ORDERED: BISMUTH SUBSALICYLATE 262 MG/15 ML BTL PO PRN (14:28)
[2024-04-15] MEDS ORDERED: diazePAM 5 MG TABLET PO PRN (15:03)
[2024-04-15] MEDS ORDERED: PRENATAL VITAMINS W/ FOLIC ACID TABLET (FP) PO ONE (15:07)
[2024-04-15] MEDS: PRENATAL VITAMINS W/ FOLIC ACID TABLET (FP) PO SCH (15:08)
[2024-04-15] MEDS: NALOXONE (NYS OPIOID OVERDOSE PROGRAM) 4 MG/0.1 ML SPRAY NS ONE (15:10)
[2024-04-15] MEDS: chlordiazePOXIDE HCL 25 MG CAPSULE PO PRN (18:14)
[2024-04-15] MEDS: chlordiazePOXIDE HCL 25 MG CAPSULE PO SCH (22:28)
[2024-04-15] MEDS: THIAMINE 100 MG TABLET PO SCH (22:28)
[2024-04-15] MEDS: MELATONIN 5 MG TABLETS PO SCH (22:28)
[2024-04-15] MEDS: METHOCARBAMOL 500 MG TABLET PO PRN (22:28)
[2024-04-15] MEDS ORDERED: diazePAM 5 MG TABLET PO SCH (23:00)
[2024-04-16 13:19] LABS: HEMATOCRIT 36.8 % (32.4-45.2); HEMOGLOBIN 12.2 GM/dL (10.7-15.3); MCH 30.1 pg (25.7-33.7); MCHC 33.2 g/dl (32.0-36.0); MEAN CELL VOLUME 90.9 fl (80-96); MEAN PLT VOLUME 11.7 fl (7.5-11.1); PLATELET COUNT 242 10^3/uL (134-434); RBC 4.05 M/mm3 (3.60-5.2); RDW 13.9 % (11.6-15.6); WHITE BLOOD COUNT 7.5 K/mm3 (4.0-10.0)
[2024-04-16 13:26] LABS: POTASSIUM 3.8 mmol/L (3.5-5.1)
[2024-04-16 13:43] LABS: ALBUMIN 4.6 g/dl (3.4-5.0); BLOOD UREA NITROGEN 19.6 mg/dL (7-18); CREATININE 1.1 mg/dL (0.55-1.3)
[2024-04-16 13:46] LABS: CALCIUM 10.4 mg/dL (8.5-10.1)
[2024-04-16 13:47] LABS: TOT PROT 9.2 g/dl (6.4-8.2)
[2024-04-16] MEDS ORDERED: NALOXONE (NYS OPIOID OVERDOSE PROGRAM) 4 MG/0.1 ML SPRAY NS PRN (14:25)
[2024-04-16 15:07] LABS: BILIRUBIN,TOTAL 0.6 mg/dL (0.2-1)
[2024-04-16] MEDS: BENZOCAINE/MENTHOL (CHLORASEPTIC ) LOZENGE MM PRN (20:37)
[2024-04-16] MEDS: guaiFENesin 600 MG TABLET.ER (FP) PO PRN (20:38)
[2024-04-16] MEDS ORDERED: ALBUTEROL SO4 HFA INHALER IH ONE (21:19)
[2024-04-16] MEDS: MOMETASONE FUROATE 110 MCG/IH INHALER IH SCH (22:45)
[2024-04-16] MEDS: CALCIUM (OYSTER SHELL) 500 MG TABLET (FP) PO SCH (22:45)
[2024-04-16] MEDS: ATORVASTATIN CA 10 MG TABLET (FP) PO SCH (22:45)
[2024-04-17] MEDS: NALOXONE (NYS OPIOID OVERDOSE PROGRAM) 4 MG/0.1 ML SPRAY NS ONE (00:18)
[2024-04-17] MEDS: chlordiazePOXIDE HCL 25 MG CAPSULE PO SCH (05:45)
[2024-04-17] MEDS ORDERED: diazePAM 5 MG TABLET PO SCH (06:00)
[2024-04-17] MEDS: hydrOXYzine PAMOATE 25 MG CAPSULE (FP) PO PRN (17:23)
[2024-04-17] MEDS: IBUPROFEN 600 MG TABLET (FP) PO PRN (17:24)
[2024-04-17] MEDS: ALBUTEROL SO4 HFA INHALER IH PRN (22:27)
[2024-04-18] MEDS ORDERED: chlordiazePOXIDE HCL 10 MG CAPSULE PO PRN
[2024-04-18] MEDS: chlordiazePOXIDE HCL 10 MG CAPSULE PO SCH (05:30)
[2024-04-18] MEDS ORDERED: diazePAM 5 MG TABLET PO SCH (06:00)
[2024-04-18] MEDS: guaiFENesin 600 MG TABLET.ER (FP) PO SCH (09:43)
[2024-04-18] MEDS: MOMETASONE FUROATE 220 MCG/IH INHALER IH SCH (22:20)
[2024-04-19] MEDS: chlordiazePOXIDE HCL 10 MG CAPSULE PO SCH (05:35)
[2024-04-19] MEDS ORDERED: diazePAM 5 MG TABLET PO ONE (06:00)
[2024-04-20] MEDS: chlordiazePOXIDE HCL 10 MG CAPSULE PO ONE (06:01)
[2024-04-20 11:46] VITALS: BP 144/110; PULSE 111; RESP 20; TEMP 98.4
== END 2024-04-20 10:08 | disposition home or self-care (01) | DRG 774 ==
LOC: YASAS 12:53 → Y6N 15:05
PROVIDERS: ADMIT Allergy & Immunology; ATTEND Surgery
PROC: HZ2ZZZZ Detoxification Services for Substance Abuse Treatment (ICD-10-PCS; principal; 2024-04-15)
DX: F10.230 Alcohol dependence with withdrawal, uncomplicated (principal); F14.20 Cocaine dependence, uncomplicated; F19.282 Other psychoactive substance dependence with psychoactive substance-induced sleep disorder; F32.9 Major depressive disorder, single episode, unspecified; E78.5 Hyperlipidemia, unspecified; I10 Essential (primary) hypertension; J45.20 Mild intermittent asthma, uncomplicated; R76.11 Nonspecific reaction to tuberculin skin test without active tuberculosis; Z86.19 Personal history of other infectious and parasitic diseases; Z87.891 Personal history of nicotine dependence
CPT/HCPCS: 36415; 80053; 80305; 80307; 85027; 86593; 86780; 87651; 93005; 93010

== ENCOUNTER 2024-04-20 11:09 | Inpatient (IN) | payer OTHER ==
[2024-04-20 11:59] VITALS: BMI 18.7
[2024-04-20] MEDS ORDERED: IBUPROFEN 600 MG TABLET (FP) PO PRN (12:09)
[2024-04-20] MEDS ORDERED: DOCUSATE SODIUM 100 MG CAPSULE (FP) PO PRN (12:09)
[2024-04-20] MEDS ORDERED: MAG HYDROX/AL HYDROX/SIMETH 30 ML UNIT-DOSE CUP PO PRN (12:09)
[2024-04-20] MEDS ORDERED: BENZOCAINE/MENTHOL (CHLORASEPTIC ) LOZENGE MM PRN (12:09)
[2024-04-20] MEDS ORDERED: IBUPROFEN 400 MG TABLET (FP) PO PRN (12:09)
[2024-04-20] MEDS ORDERED: P-EPHED 60MG/TRIPROLIDI 2.5MG TABLET PO PRN (12:09)
[2024-04-20] MEDS ORDERED: LOPERAMIDE HCL 2 MG CAPSULE PO PRN (12:09)
[2024-04-20] MEDS ORDERED: POLYETHYLENE GLYCOL (HEALTHYLAX) 3350 17 GM PACKET PO PRN (12:09)
[2024-04-20] MEDS ORDERED: BENZONATATE 200 MG CAPSULE PO PRN (12:09)
[2024-04-20] MEDS ORDERED: ACETAMINOPHEN 325 MG TABLET (FP) PO PRN (12:09)
[2024-04-20] MEDS ORDERED: MAGNESIUM HYDROX 2400MG/30ML ORAL SUSPENSION 30 ML CUP PO PRN (12:09)
[2024-04-20] MEDS: guaiFENesin 200 MG/10 ML 10 ML UNIT-DOSE CUPS PO PRN (16:45)
[2024-04-20] MEDS: ALBUTEROL SO4 HFA INHALER IH PRN (18:18)
[2024-04-20] MEDS: hydrOXYzine PAMOATE 25 MG CAPSULE (FP) PO PRN (21:42)
[2024-04-20] MEDS: MIRTAZAPINE 15 MG TABLET (FP) PO SCH (21:42)
[2024-04-20] MEDS: THIAMINE 100 MG TABLET PO SCH (21:42)
[2024-04-20] MEDS: MELATONIN 5 MG TABLETS PO SCH (21:42)
[2024-04-20] MEDS: ATORVASTATIN CA 10 MG TABLET (FP) PO SCH (21:42)
[2024-04-20] MEDS: CALCIUM (OYSTER SHELL) 500 MG TABLET (FP) PO SCH (22:55)
[2024-04-20] MEDS: MOMETASONE FUROATE 110 MCG/IH INHALER IH SCH (22:55)
[2024-04-21] MEDS: PRENATAL VITAMINS W/ FOLIC ACID TABLET (FP) PO SCH (10:19)
[2024-04-22 07:13] VITALS: BP 133/86; PULSE 90; RESP 18; TEMP 97.3
== END 2024-04-22 15:30 | disposition left against medical advice (07) | DRG 770 ==
LOC: YASAS 11:09 → Y3NR 12:37 → Y5N 04-21 12:07
PROVIDERS: ADMIT Psychiatry & Neurology Pain Medicine; ATTEND Psychiatry & Neurology Pain Medicine
PROC: HZ42ZZZ Group Counseling for Substance Abuse Treatment, Cognitive-Behavioral (ICD-10-PCS; principal; 2024-04-20)
DX: F10.20 Alcohol dependence, uncomplicated (principal); F14.20 Cocaine dependence, uncomplicated; F19.282 Other psychoactive substance dependence with psychoactive substance-induced sleep disorder; F19.280 Other psychoactive substance dependence with psychoactive substance-induced anxiety disorder; F32.A Depression, unspecified; E78.5 Hyperlipidemia, unspecified; I10 Essential (primary) hypertension; J45.20 Mild intermittent asthma, uncomplicated; R76.11 Nonspecific reaction to tuberculin skin test without active tuberculosis; Z87.891 Personal history of nicotine dependence; Z86.19 Personal history of other infectious and parasitic diseases
CPT/HCPCS: 0241U-QW; 80305; 80307; 87811

== ENCOUNTER 2024-09-11 16:37 | Inpatient (IN) | payer OTHER ==
[2024-09-11 17:36] VITALS: BMI 16.1
[2024-09-11] MEDS ORDERED: MAGNESIUM HYDROX 2400MG/30ML ORAL SUSPENSION 30 ML CUP PO PRN (18:22)
[2024-09-11] MEDS ORDERED: IBUPROFEN 400 MG TABLET (FP) PO PRN (18:22)
[2024-09-11] MEDS ORDERED: POLYETHYLENE GLYCOL (HEALTHYLAX) 3350 17 GM PACKET PO PRN (18:22)
[2024-09-11] MEDS ORDERED: BENZONATATE 200 MG CAPSULE PO PRN (18:22)
[2024-09-11] MEDS ORDERED: guaiFENesin 600 MG TABLET.ER (FP) PO PRN (18:22)
[2024-09-11] MEDS ORDERED: BENZOCAINE/MENTHOL (CHLORASEPTIC ) LOZENGE MM PRN (18:22)
[2024-09-11] MEDS ORDERED: IBUPROFEN 600 MG TABLET (FP) PO PRN (18:22)
[2024-09-11] MEDS ORDERED: NALOXONE (NARCAN) HCL 4 MG/0.1 ML SPRAY NS PRN (18:22)
[2024-09-11] MEDS: hydrOXYzine PAMOATE 25 MG CAPSULE (FP) PO PRN (19:49)
[2024-09-11] MEDS: ATORVASTATIN CA 10 MG TABLET (FP) PO SCH (22:10)
[2024-09-11] MEDS: MELATONIN 5 MG TABLETS PO SCH (22:10)
[2024-09-11] MEDS: THIAMINE 100 MG TABLET PO SCH (22:10)
[2024-09-12 10:32] LABS: HEMATOCRIT 35.6 % (32.4-45.2); HEMOGLOBIN 11.5 GM/dL (10.7-15.3); MCH 29.6 pg (25.7-33.7); MCHC 32.3 g/dl (32.0-36.0); MEAN CELL VOLUME 91.6 fl (80-96); MEAN PLT VOLUME 10.9 fl (7.5-11.1); PLATELET COUNT 190 10^3/uL (134-434); RBC 3.89 M/mm3 (3.60-5.2); RDW 13.6 % (11.6-15.6); WHITE BLOOD COUNT 6.2 K/mm3 (4.0-10.0)
[2024-09-12 11:17] LABS: ALBUMIN 3.9 g/dl (3.4-5.0); BLOOD UREA NITROGEN 18.2 mg/dL (7-18); CHLORIDE 104 mmol/L (98-107); POTASSIUM 3.8 mmol/L (3.5-5.1); SODIUM 143 mmol/L (136-145)
[2024-09-12 11:19] LABS: ANION GAP 8 mmol/L (4-13); CO2 31 mmol/L (21-32); GLUCOSE,RANDOM 90 mg/dL (74-106)
[2024-09-12 11:21] LABS: CALCIUM 9.7 mg/dL (8.5-10.1)
[2024-09-12 11:22] LABS: SGPT/ALT 39 U/L (13-61)
[2024-09-12 11:23] LABS: BILIRUBIN,TOTAL 0.4 mg/dL (0.2-1); CREATININE 0.9 mg/dL (0.55-1.3)
[2024-09-12 11:24] LABS: ALK PHOS 81 U/L (45-117)
[2024-09-12 11:28] LABS: SGOT/AST 33 U/L (15-37)
[2024-09-12 11:32] LABS: SYPHILIS W/ RPR CONF REACTIVE (NONREACTIVE)
[2024-09-12] MEDS: PRENATAL VITAMINS W/ FOLIC ACID TABLET (FP) PO SCH (11:58)
[2024-09-12] MEDS: amLODIPine BESYLATE 5 MG TABLET (FP) PO SCH (17:49)
[2024-09-12] MEDS: SUVOREXANT 5 MG TABLET PO PRN (21:49)
[2024-09-13 14:59] LABS: PH,URINE 6.5 (5.0-8.0); URINE APPEARANCE CLEAR; URINE BILIRUBIN NEGATIVE (NEGATIVE); URINE COLOR YELLOW; URINE GLUCOSE (UA) NEGATIVE (NEGATIVE); URINE KETONE NEGATIVE (NEGATIVE); URINE LEUK ESTERASE NEGATIVE (NEGATIVE); URINE NITRITE NEGATIVE (NEGATIVE); URINE PROTEIN NEGATIVE (NEGATIVE); URINE UROBILINOGEN 0.2 mg/dL (0.2-1.0)
[2024-09-14] MEDS: ACETAMINOPHEN 325 MG TABLET (FP) PO PRN (09:54)
[2024-09-14] MEDS: ALBUTEROL SO4 HFA INHALER IH PRN (09:56)
[2024-09-15] MEDS: LOPERAMIDE HCL 2 MG CAPSULE PO PRN (04:35)
[2024-09-15] MEDS: MAG HYDROX/AL HYDROX/SIMETH 30 ML UNIT-DOSE CUP PO PRN (06:43)
[2024-09-16 07:05] VITALS: RESP 17; TEMP 98.4
[2024-09-16 10:50] VITALS: BP 136/97; PULSE 88
== END 2024-09-16 16:05 | disposition home or self-care (01) | DRG 772 ==
LOC: YASAS 16:37 → Y3NR 19:12 → Y5N 09-13 11:48
PROVIDERS: ADMIT Psychiatry & Neurology Pain Medicine; ATTEND Psychiatry & Neurology Pain Medicine
PROC: HZ42ZZZ Group Counseling for Substance Abuse Treatment, Cognitive-Behavioral (ICD-10-PCS; principal; 2024-09-11)
DX: F10.20 Alcohol dependence, uncomplicated (principal); F14.20 Cocaine dependence, uncomplicated; F16.20 Hallucinogen dependence, uncomplicated; F19.282 Other psychoactive substance dependence with psychoactive substance-induced sleep disorder; F32.9 Major depressive disorder, single episode, unspecified; G47.00 Insomnia, unspecified; E78.5 Hyperlipidemia, unspecified; I10 Essential (primary) hypertension; J45.20 Mild intermittent asthma, uncomplicated; R76.11 Nonspecific reaction to tuberculin skin test without active tuberculosis; Z20.822 Contact with and (suspected) exposure to COVID-19; Z87.891 Personal history of nicotine dependence
CPT/HCPCS: 36415; 71046-TC-FY; 80053; 80305; 80307; 81003; 81025; 85027; 86593; 86780; 86803; 87811; 93005; 93010